=== PATIENT | male | born 1980 | race Caucasian/White ===

== ENCOUNTER 2021-05-02 06:01 | Day surgery (SDC) | payer BC ==
[~2021-05-02] VITALS: Ht 185.4 cm; Wt 95.3 kg
[2021-05-02] MEDS ORDERED: DHEA25 M3 PO (06:40)
[2021-05-02] MEDS ORDERED: VITAMIND3 5000 PO (06:41)
[2021-05-02] MEDS ORDERED: L-THEANINE200 MG PO (06:43)
[2021-05-02] MEDS ORDERED: THYROTAIN PO (06:43)
[2021-05-02] MEDS ORDERED: [UNRECOGNIZED DRUG - OTHER] PO (06:44)
[2021-05-02 06:45] VITALS: BP 129/84; PULSE 74; TEMP 97.9
[2021-05-02] MEDS ORDERED: NORCO 325 MG-51 TAB PO (10:19)
[2021-05-02 10:58] VITALS: BP 116/72; PULSE 75; TEMP 98.1
--- NOTE | 2021-05-02 10:58 | NUR ---
Pt returns to [facility] from PACU, drowsy but awakens easily and oriented x3, VSS, reports discomfort to abdomen, will give pain pill if tolerates something to eat and drink. at bedside. Call light in reach. 3 bandaids to abdomen clean and dry.
[2021-05-02 11:15] VITALS: BP 113/71; PULSE 88
--- NOTE | 2021-05-02 11:25 | NUR ---
Pt tolerates a muffin and juice well, denies nausea, given a [place] per orders. VSS. Call light in reach.
[2021-05-02 11:30] VITALS: BP 116/66; PULSE 82
[2021-05-02 11:45] VITALS: BP 104/63; PULSE 83
--- NOTE | 2021-05-02 12:00 | NUR ---
Pt resting, denies needs, pain manageable. VSS. Call light in reach.
--- NOTE | 2021-05-02 12:30 | NUR ---
Pt up to the bathroom. Tolerates movement well.
[2021-05-02 12:35] VITALS: PULSE 95
--- NOTE | 2021-05-02 12:50 | NUR ---
Pt unable to void, Dr. Davis notified and okay with pt to go home and to report to the ER if unable to void later today. Pt and given discharge instructions. Pt taken out via wheelchair and left in care of at 1300.
== END 2021-05-02 13:00 | disposition home or self-care (01) ==
LOC: SDCO 06:01
DX: K40.90 Unilateral inguinal hernia, without obstruction or gangrene, not specified as recurrent (principal); D17.6 Benign lipomatous neoplasm of spermatic cord; Z79.899 Other long term (current) drug therapy
CPT/HCPCS: C1781; J7120

== ENCOUNTER → 2021-05-25 | Outpatient (CLI) | payer BC ==
[~2021-05-25] MED LIST: DHEA25 M3 PO; L-THEANINE200 MG PO; NORCO 325 MG-51 TAB PO; THYROTAIN PO; VITAMIND3 5000 PO; [UNRECOGNIZED DRUG - OTHER] PO
== END ==
LOC: COL.RAD 08:26
DX: E03.9 Hypothyroidism, unspecified (principal); E29.1 Testicular hypofunction; N50.819 Testicular pain, unspecified